=== PATIENT | female | born 1990 | race Caucasian/White ===

== ENCOUNTER 2016-10-10 11:46 | Day surgery (SDC) | payer OTHER ==
[~2016-10-10 11:46] MED LIST: RINGERS SOLUTION,LACTATED 1,000 ML IV PRN
--- OUTSIDE RECORDS SUMMARY | 2016-10-10 11:49 | XMS REPORT | Continuity of Care Document ---
:1990 Author Organization [facility] ([facility]) Address [address] [place] [address] Phone [phone] Care Team Providers Name Role Phone Everardo Khoury Primary Care Provider [phone] Source Comments This disclosure is being made pursuant to the Care Everywhere program, applicable federal and state laws, and may not contain all informaitonavailable regarding this patient.[facility] ([facility]) Active Allergies and Adverse Reactions No Known Allergies Current Medications Prescription Sig. Disp. Refills Start Date End Date Status Take 1 Tab by mouth Active [id number] PO daily. HYDROcodone-acetaminophe Take 1 Tab by mouth Active n (VICODIN) 5-500 mg per every 6 hours as tablet needed. nitrofurantoin Take 1 Cap by mouth 14 Cap 0 01/03/2011 Active (MACROBID) 100 mg 2 times daily. capsule Indications: E. Coli Urinary Tract Infection Active Problems Problem Noted Date Migraines - takes vicodin 01/03/2011 Tobacco use 08/05 ppd 01/03/2011 ASCUS on Pap smear, HPV neg 08/27/2010 01/03/2011 Elevated Dopplers 4.8-5.3 @ 25 weeks, normal at 27 weeks, to continue to 01/03 follow Q 4 wks, deliver locally UTI treated for + nitrites and 3+ protein on 01/03- needs ZACK 01/03/2011 Anemia 12/19/2010 Proteinuria, 4+ at initial OB visit, 2+ in 2008. 24 hr urine for protein 911 mg 12/26 Overview: Baseline labs: AST 9, ALT 13, Creat 0.5, Hgb 10.9, Plt 191 , , dating by LMP c/w 18 wk US 12/17/2010 Currently Estimated Date of Delivery Comments Yes Social History Tobacco Use Types Packs/Day Years Used Date Never Assessed 0.5 Smokeless Tobacco: Current User Comments:not interested in quiting Alcohol Use Drinks/Week oz/Week Comments No Last Filed Vital Signs Vital Sign Reading Time Taken Blood Pressure 120/70 01/17/2011 1:00 PM CDT Pulse 111 01/17/2011 1:00 PM CDT Temperature 35.9 C (96.6 F) 01/03/2011 1:00 PM CDT Respiratory Rate - - Height 1.57 m (5' 1.81") 12/20/2010 8:39 AM CDT Weight 104.2 kg (229 lb 11.5 oz) 01/17/2011 1:00 PM CDT Body Mass Index 42.27 01/17/2011 1:00 PM CDT Oxygen Saturation - - Plan of Care Health Maintenance Due Date Last Done Comments Hepatitis B Vaccine (1 of 3 - Primary Series) 1990 Tdap Vaccine 12/28/1999 Cervical Cancer Screening 2006 Lipid Disorder Screening 2006 MMR Vaccine 2006 Td Vaccine 2006 Influenza Vaccine: Seasonal (#1) 03/04/2016 Results from Last 3 Months Not on file
[2016-10-10 12:16] LABS: Hematocrit 41.4 % (37.0-47.0); Hemoglobin 13.9 gm/dL (12.5-16.0); Mean Cell Volume 93.9 fl (78-100); Mean Corpuscular Hemoglobin 31.5 pg (27-31); Mean Corpuscular Hgb Conc 33.6 g/dl (32-36); Mean Platelet Volume 10.2 fl (6.0-9.5); Neutrophil # 6.3 K/mm3 (1.3-6.0); Neutrophil % 64.2 % (42-75.0); Platelet Count 215 K/mm3 (150-450); Red Blood Count 4.41 M/mm3 (4.2-5.4); Red Cell Distribution Width 13.1 % (11.5-14.0); White Blood Count 9.8 K/mm3 (4.0-10.5)
[2016-10-10 12:30] LABS: Albumin * 3.4 gm/dl (3.4-5.0); Anion Gap 14.5 mmol/L (6.8-13.8); BUN/Creatinine Ratio 19.3 (9.0-21.6); Bilirubin, Total 0.3 mg/dL (0.0-1.1); Ca. Corrected For Albumin 9.2 mg/dL (8.4-10.2); Carbon Dioxide 24.6 mmol/L (24-32.6); Potassium 4.1 mmol/L (3.4-4.6); Total Protein 7.7 gm/dL (6.2-8.2)
[2016-10-10] MEDS ORDERED: RINGERS SOLUTION,LACTATED 1,000 ML IV ONE ×2 (12:33→13:30)
[2016-10-10] MEDS ORDERED: BUPIVACAINE HCL 50 ML VIAL IM ONE ×2 (13:20)
[2016-10-10] MEDS ORDERED: METHYLENE BLUE 1 ML AMPUL IJ ONE (13:50)
[2016-10-10] MEDS ORDERED: IBUPROFEN 800 MG TABLET PO ONE ×2 (15:17→17:00)
[2016-10-10] MEDS ORDERED: RINGERS SOLUTION,LACTATED 1,000 ML IV PRN (15:17)
[2016-10-10] MEDS ORDERED: HYDROcodone/ACETAMINOPHEN 1 EACH TABLET PO ONE ×2 (15:18→17:00)
[2016-10-10] MEDS ORDERED: IBUPROFEN 800 MG TABLET ONE (16:54)
--- NOTE | 2016-10-10 16:54 | OR ---
Operative Report - Dictated Report Narrative: Date of Procedure: 10/10/2016 PROCEDURE: 1. Hysteroscopy, D&C 2. Diagnostic laparoscopy with chromotubation 3. Right ovarian partial cystectomy. ANESTHESIA: General, endotracheal intubation. PREOPERATIVE DIAGNOSIS: 1. Secondary infertility 2. Abnormal ultrasound of the endometrium with multiple cystic lesions. 3. Right ovarian cyst, 3-4 cm on ultrasound POSTOPERATIVE DIAGNOSES: 1. Secondary infertility, unknown causes 2. Abnormal ultrasound of the endometrium with multiple cystic lesions. 3. Right ovarian cyst, about 3 cm SURGEON: Alia Birch MD [employer]: Jeanmarie Sanchez FINDINGS: 1. Cervix with a nabothian cyst 1.5 cm at 11 o'clock. Cervical canal appeared normal. 2. Uterus appeared normal in size with normal cavity and normal tubal ostia. 3. Bilateral fallopian tubes appeared normal with spillage of blue dye ( methylene blue), suggesting patent tubes. 4. Right ovary with simple cyst 3 cm and left ovary appeared normal. 5. There was some adhesions of the sigmoid colon to the left pelvic side wall. SPECIMEN: 1. Right ovarian cyst wall. 2. Endometrial curettings. DRAINS: None. URINE OUTPUT: not measured BLOOD LOSS: 10 ml INTRAOPARATIVE IV FLUIDS: 1200 ml COMPLICATIONS: None. DESCRIPTION OF PROCEDURE: The patient consented prior to the operation and taken to the operating room. She was placed on the operating table supine. SCDs were placed on her lower extremities. General anesthesia was induced. She was repositioned in the dorsal lithotomy position. Her right arm was tucked at her side under the drape. Exam under anesthesia revealed a normal size uterus with no palpable adnexal mass. The abdomen was prepped with Chloraprep and the vagina was prepped with Betadine. She was draped in the usual sterile fashion. A time-out procedure was conducted to confirm the correct patient for the correct procedure. After time-out, a bivalve speculum was placed into the vagina. The cervix was visualized. The vagina and the cervix were prepped with Betadine one more time. The anterior cervix was grasped with a single- tooth tenaculum. The uterus was sounded to 7.5 cm. The cervix was dilated with Andrey dilators. A 30 degree hysteroscope was inserted through cervical canal into the uterine cavity. Exam of the cervical canal and uterine cavity revealed findings noted above. The hysteroscope was removed. A Zumi uterine manipulator was inserted into the uterine cavity. The balloon was inflated with 3 cc of air. The single-tooth tenaculum was removed. The bivalve speculum was removed. The surgeon then changed gloves and attention was paid to the abdomen. A small vertical incision was made at the upper edge of the umbilicus. A Veress needle was inserted into the abdominal cavity. Initial Veress needle placement was extraperitoneum as the CO2 inflation pressure quickly went up to 15 mm Hg. The Veress needle was removed. The Veress needle was inserted again into the peritoneal cavity. Intraabdominal placement was confirmed with a saline drop test and with low entry pressure of 2 mmHg. The abdomen was insufflated with CO2 gas to an intraabdominal pressure of 15 mmHg. The Veress needle was removed. A 5 mm trocar with the laparoscope was inserted through the umbilicus incision into the abdomen. Intraabdominal placement was confirmed with the laparoscope. Survey of the entry site revealed no trauma to the underlying structures. However, there was some gas distention of the extraperitoneum from the initial unsuccessful Veress needle placement. This was evacuated with the Veress needle through the over laying skin. After evacuation of the extraperitoneal gas, survey of the upper abdomen was unremarkable. The patient was then placed in Trendelenburg position. A left lower quadrant trocar (12 mm) and a right lower quadrant trocar (5 mm) were placed to avoid the inferior epigastric vessels. A fourth trocar (5 mm) was placed suprapubically in the midline. All trocars were placed under the direct visualization of the laparoscope. Survey of the pelvis revealed the findings noted above. Next, attention was paid to the chromotubation of the fallopian tubes. One milliliter of Methylene blue (10 mg/ml) was diluted with 150 ml of normal saline and 20 ml of diluted methylene blue was injected through the Zumi uterine manipulator. Dye spillage was observed in both fallopian tubes, confirming that both fallopian tubes were patent. The dye was suctioned out. Next, attention was paid to the right ovarian cystectomy. A Kleppinger was used to make a linear cauterized line over the ovarian tissue covering the cyst. An endo-scissor was used to make an incision on the cauterized line. The ovarian capsure covering the cyst was dissected with the endo-scissor in both sharp and blunt fashions. The cyst ruptured during dissection, releasing clear fluid. Part of the cyst wall was removed and sent for pathology. Due to the benign nature of the cyst, It was decided not to continue with a full dissection of the cyst wall due to potential risk of bleeding. The pelvis was irrigated with saline. Extra fluid was suctioned out from the abdomen and pelvis. There was hemostasis of the right ovary. The patient was taken out of Trendelenburg position. Three lower abdominal trocars were removed. The abdomen was deflated. The trocar at the umbilicus was removed with the laparoscope. The fascia of the LLQ 12 mm trocar site was closed with one stitch of 0 Vicryl on an UR-6 needle. The subQ tissue was closed with interrupted suture of 3-0 Vicryl. The skin incision was closed with 4-0 Monocryl suture and covered with Steri-Strips. The incision was infiltrated with 3 cc of 0.25% Marcaine for post op pain management. Next, attention was paid to performing a D&C. The Zumi uterine manipulator was removed. A weighted speculum was placed. A Modale retractor was used to retract the anterior vaginal wall. The anterior cervix was grasped with a single-tooth tenaculum. A sharp curette was inserted into the uterine cavity. The cavity was scraped gently in all directions. Moderate amount of endometrial curettings were obtained. The sharp curette was removed. There was no bleeding from the cervix. The single-tooth tenaculum was removed. The tenaculum site was hemostastic. The Modale retractor and the weighted speculum were removed. Patient tolerated the procedure well. All counts were correct. The patient was taken to the recovery room in stable condition. Alia Birch MD
[2016-10-10] MEDS ORDERED: HYDROcodone/ACETAMINOPHEN 1 EACH TABLET ONE (16:55)
[2016-10-10 18:00] VITALS: BP 130/75
== END 2016-10-10 11:47 | disposition home or self-care (01) ==
LOC: AMB 11:46
PROVIDERS: ATTEND Obstetrics & Gynecology
PROC: 0UB04ZZ Excision of Right Ovary, Percutaneous Endoscopic Approach (ICD-10-PCS; 2016-10-10)
PROC: 3E1P88Z Irrigation of Female Reproductive using Irrigating Substance, Via Natural or Artificial Opening Endoscopic (ICD-10-PCS; principal; 2016-10-10 13:00)
PROC: 0UDB8ZX Extraction of Endometrium, Via Natural or Artificial Opening Endoscopic, Diagnostic (ICD-10-PCS; 2016-10-10 13:00)
DX: N83.201 Unspecified ovarian cyst, right side (principal); N97.9 Female infertility, unspecified; E11.21 Type 2 diabetes mellitus with diabetic nephropathy; E66.9 Obesity, unspecified; Z68.39 Body mass index [BMI] 39.0-39.9, adult; F17.200 Nicotine dependence, unspecified, uncomplicated

== ENCOUNTER 2018-12-10 23:45 | Inpatient (IN) ==
[2018-12-11] MEDS ORDERED: LIDOCAINE HCL 50 ML VIAL PERI PRN (00:52)
[2018-12-11] MEDS ORDERED: NALBUPHINE HCL 10 MG/ML AMPUL IV PRN ×2 (00:52)
[2018-12-11] MEDS ORDERED: OXYTOCIN/DEXTROSE 5%-WATER 30 UNITS/500 ML BAG IV ONE (00:52)
[2018-12-11] MEDS ORDERED: ONDANSETRON 4 MG TAB.RAPDIS PO PRN (00:52)
[2018-12-11] MEDS ORDERED: RINGER'S SOLUTION,LACTATED 1,000 ML IV ONE (00:52)
[2018-12-11] MEDS ORDERED: RINGER'S SOLUTION,LACTATED 1,000 ML IV PRN (00:52)
[2018-12-11 01:43] LABS: Hematocrit 32.9 % (37.0-47.0); Mean Cell Volume 95.9 fl (78-100); Mean Corpuscular Hemoglobin 32.1 pg (27-31); Mean Corpuscular Hgb Conc 33.4 g/dl (32-36); Mean Platelet Volume 10.1 fl (8-12.5); Neutrophil # 10.2 K/mm3 (1.3-6.0); Neutrophil % 76.9 % (42-75.0); Platelet Count 183 K/mm3 (150-450); Red Blood Count 3.43 M/mm3 (4.2-5.4); Red Cell Distribution Width 13.5 % (11.5-14.0); White Blood Count 13.2 K/mm3 (4.0-10.5)
[2018-12-11 01:57] LABS: Albumin * 2.2 gm/dl (3.4-5.0); Anion Gap 15.9 mmol/L (6.8-13.8); BUN/Creatinine Ratio 9.4 (9.0-21.6); Bilirubin, Total 0.2 mg/dL (0.0-1.1); Ca. Corrected For Albumin 9.8 mg/dL (8.4-10.2); Calcium * 8.7 mg/dL (7.9-10.9); Carbon Dioxide 21.1 mmol/L (24-32.6); Total Protein 6.1 gm/dL (6.2-8.2)
[2018-12-11 02:00] LABS: Cocaine Ur Negative (NEGATIVE); Urine Barbiturate Negative (NEGATIVE); Urine Benzodiazepines Negative (NEGATIVE); Urine Opiates Negative (NEGATIVE); Urine PCP Negative (NEGATIVE); Urine THC Negative (NEGATIVE)
[2018-12-11] MEDS ORDERED: NALOXONE HCL 1 MG/1 ML SYRG IV PRN (07:01)
[2018-12-11] MEDS ORDERED: BUPIVACAINE HCL/0.9 % NACL/PF 250 ML EP PRN (07:01)
[2018-12-11] MEDS ORDERED: ONDANSETRON HCL/PF 2 MG/ML VIAL IV PRN ×2 (07:01→12:48)
--- NOTE | 2018-12-11 07:08 | ANES ---
Anesthesia Pre Procedure Eval Vitals/Labs: Last Vital Signs Temp 36.7 C 12/11/18 00:30 Pulse 99 12/11/18 00:30 Resp 17 12/11/18 00:30 BP 142/91 H 12/11/18 00:30 Pulse Ox 97 12/11/18 00:30 HOME MEDICATIONS diphenhydramine 25 mg tablet 25 mg PO HS 11/04/18 [Last Taken 12/01/18] Vits96/Iron Fum/Folic [ S] 1 tab PO DAILY 12/09/18 [Last Taken Unknown] Allergies/Adverse Reactions: Allergies Allergy/AdvReac Type Severity Reaction Status Date / Time No Known Allergies Allergy Verified 12/11/18 00:54 - Planned Procedure Planned Procedure: labor Medication List Reviewed:: Yes Allergies Verified: Yes Medical History (Updated 09/08/18 @ 12:05 by Andres Dominique DO) Furuncle (Acute) posterior left labia. Culture done today by PCP 09/08/18. History of OCD (obsessive compulsive disorder) Tobacco abuse Fracture of medial malleolus Onset Date: ~04/14/14 left, hardware in place Type II diabetes mellitus Onset Date: ~06/14/14 resolved after weight loss surgery Surgical History (Updated 07/13/18 @ 09:12 by Annie Jon LPN) History of bilateral carpal tunnel release Onset Date: ~09/2017 History of gastric bypass Onset Date: ~10/2017 gastric sleeve History of hysteroscopy Onset Date: ~10/10/16 History of laparoscopy Onset Date: ~10/10/16 History of ovarian cystectomy Onset Date: ~2011 History of tonsillectomy and adenoidectomy Onset Date: ~2009 History of wisdom tooth extraction Onset Date: ~2011 Hx of cholecystectomy Onset Date: ~2007 Status post correction of deviated nasal septum Onset Date: ~2009 Family History (Updated 07/13/18 @ 09:15 by Annie Jon LPN) Mother Pancreatic cancer, Onset Age: 55 Father Lung cancer, Onset Age: 67 Hypertension Grandmother Brain cancer Grandfather CVA (cerebral vascular accident) - Family Anesthesia History Family History:: no untoward family reactions to anesthesia, no familial bleeding tendencies, no family history of clotting disorders, no family history of premature - Airway/Neck/Teeth Within Normal Limits:: Yes Teeth Condition: none Neck Exam: full range of motion Mallampatti Score: 2 Thyromental (T-M) distance: > 6 cm Mandibulo Hyoid distance: > 3 cm - Respiratory Respiratory Physical: rhonchi Smoking Status: Current every day smoker Discussed smoking cessation including day of surgery: Yes Sleep Apnea currently treated: No Sleep Apnea by current assessment: No - Cardiovascular Tolerate Activity: Fair Heart Sounds: S1 & S2, Regular - Anesthesia Assessment and Plan ASA Class: PS, II, E Anesthesia Type Plan: Epidural - CSE for labor analagesia
[2018-12-11] MEDS ORDERED: fentaNYL CITRATE/PF 50 MCG/ML AMPUL IT SCH (07:15)
[2018-12-11] MEDS ORDERED: LIDOCAINE HCL/EPINEPHRINE 20 ML VIAL ONE (07:17)
[2018-12-11] MEDS ORDERED: LIDOCAINE HCL/EPINEPHRINE 20 ML VIAL IJ ONE (07:23)
--- NOTE | 2018-12-11 07:32 | ANES ---
Post Anesthesia Discharge - Transfer of Care Transfer of Care handoff given to nurse: Yes - Discharge from PACU Discharge from PACU when meets criteria: Yes - Comfortable after CSE.
--- NOTE | 2018-12-11 07:33 | ANES ---
Anesthesia Procedure Note Procedure Note: ANESTHESIA PROCEDURE NOTE Date of Procedure: 12/11/2018 Time of procedure: 7:10 AM. Performed by: Jayme Glover CRNA, MSN [employer] Vehicle Patrol Officer: Tessa Nolan RN. Preprocedure diagnosis: Active labor, labor pain. Post procedure diagnosis: Same. Procedure:Epidural for labor analgesia L34. Indications: Labor pain. Findings: See below. Details of the procedure: The patient was placed on the side of the bed in sitting positionand prepped with DuraPrep then draped in a sterile fashion. Lidocaine 1% was infiltrated to the skin and subcutaneous tissues at the level of the L3 4 interspace. An 18-gauge Touhy needle was used to approach the epidural space with loss of resistance technique. Once loss of resistance was achieved a 27-gauge spinal needle was passed through the epidural needle and CSF was contacted. After CSF returned, 20 mcg of fentanyl was injected in the spinal needle was removed the epidural catheter was then threaded approximately 4 cm in the epidural needle was removed. The catheter was taped in place and after careful aspiration 3 mL of 1.5% lidocaine with 1-200,000 epinephrine was injected without change in maternal heart rate or sensorium. . EBL: Minimal. Fluids: N/A. Specimen: N/A. Post procedure condition: The patient tolerated the procedure well with good re lief. No complications were noted. Thank you for this consultation. Jayme Glover CRNA, MSN
--- NOTE | 2018-12-11 07:49 | ANES ---
Post Anesthesia Assessment - Vital Signs Vitals: Last Vital Signs Temp 36.7 C 12/11/18 00:30 Pulse 99 12/11/18 00:30 Resp 17 12/11/18 00:30 BP 142/91 H 12/11/18 00:30 Pulse Ox 97 12/11/18 00:30 Airway Patency: Normal - Mental Status Level Of Consciousness: Awake, Alert, Appropriate - Pain Level Pain Score: 0 - N/V Assessment Nausea/Vomiting Presence: None Dehydration:: No
--- NOTE | 2018-12-11 07:52 | HP ---
Chief Complaint - Chief Complaint Date of Service: 12/11/18 Time of Service: 07:48 Chief Complaint: Labor induction History of Present Illness: The patient presents for medical induction of labor due to pre-eclampsia. She denies STUART, visual changes or abdominal pain. She is having regular ctx on pitocin. She denies vb or lof. Fetus is active. Medical History (Updated 09/08/18 @ 12:05 by Andres Dominique DO) Furuncle (Acute) posterior left labia. Culture done today by PCP 09/08/18. History of OCD (obsessive compulsive disorder) Tobacco abuse Fracture of medial malleolus Onset Date: ~04/14/14 left, hardware in place Type II diabetes mellitus Onset Date: ~06/14/14 resolved after weight loss surgery Surgical History: Surgical History (Updated 07/13/18 @ 09:12 by Annie Jon LPN) History of bilateral carpal tunnel release Onset Date: ~09/2017 History of gastric bypass Onset Date: ~10/2017 gastric sleeve History of hysteroscopy Onset Date: ~10/10/16 History of laparoscopy Onset Date: ~10/10/16 History of ovarian cystectomy Onset Date: ~2011 History of tonsillectomy and adenoidectomy Onset Date: ~2009 History of wisdom tooth extraction Onset Date: ~2011 Hx of cholecystectomy Onset Date: ~2007 Status post correction of deviated nasal septum Onset Date: ~2009 Family History: Family History (Updated 07/13/18 @ 09:15 by Annie Jon LPN) Mother Pancreatic cancer, Onset Age: 55 Father Lung cancer, Onset Age: 67 Hypertension Grandmother Brain cancer Grandfather CVA (cerebral vascular accident) Social History: Preferred Language [place] Smoking Status Current every day smoker Smoking packs per day 0.5 Abuse History No History of abuse Psych History No pertinent hx (Last Updated 12/09/18 @ 14:46 by Rosalina Parish MD) No Social History Section defined Review Of Systems (GEN) - Review of Systems Generalized/Overall Review: Present: No Symptoms Reported Misc: All systems neg except as marked Immunizations: IMMUNIZATION HX Immunizations Up to Date Yes Allergies/Adverse Reactions: Allergies Allergy/AdvReac Type Severity Reaction Status Date / Time No Known Allergies Allergy Verified 12/11/18 00:54 Home Medications: HOME MEDICATIONS diphenhydramine 25 mg tablet 25 mg PO HS 11/04/18 [Last Taken 12/01/18] Vits96/Iron Fum/Folic [ S] 1 tab PO DAILY 12/09/18 [Last Taken Unknown] Exam - Exam Vital Signs: Vital Signs - Last Taken Temp 36.7 C 12/11/18 00:30 Pulse 99 12/11/18 00:30 Resp 17 12/11/18 00:30 BP 142/91 H 12/11/18 00:30 Pulse Ox 97 12/11/18 00:30 Constitutional: Present: Alert, Oriented x3, Cooperative Respiratory: Present: lungs clear, normal breath sounds Cardiovascular/Chest: Present: regular rate, rhythm, no murmur Abdomen: Present: soft, nontender, nondistended Extremity: Present: non-tender, no calf tenderness Skin Exam: Present: normal color, warm/dry, no cyanosis Appearance: Present: appropriate appearance Eye contact: Present: cooperative Thoughts: Present: normal thought pattern Diagnostic Studies: Abnormal Lab Results 12/11/18 12/11/18 Range/Units 01:30 01:30 WBC 13.2 H (4.0-10.5) K/mm3 RBC 3.43 L (4.2-5.4) M/mm3 Hgb 11.0 L (12.5-16.0) gm/dL Hct 32.9 L (37.0-47.0) % MCH 32.1 H (27-31) pg Immature Gran % (Auto) 0.60 H (0.001-0.429) % Immature Gran # (Auto) 0.08 H (0.000-0.0310) K/mm3 Neutrophils % 76.9 H (42-75.0) % Lymphocytes % 18.1 L (20-51) % Neutrophils # 10.2 H (1.3-6.0) K/mm3 Potassium 3.0 L (3.4-4.6) mmol/L Carbon Dioxide 21.1 L (24-32.6) mmol/L Anion Gap 15.9 H (6.8-13.8) mmol/L Random Glucose 120 H (70-110) mg/dL ALT 10 L (19-67) U/L Total Protein 6.1 L (6.2-8.2) gm/dL Albumin 2.2 L (3.4-5.0) gm/dl Laboratory Results WBC 13.2 K/mm3 (4.0-10.5) H 12/11/18 01:30 RBC 3.43 M/mm3 (4.2-5.4) L 12/11/18 01:30 Hgb 11.0 gm/dL (12.5-16.0) L 12/11/18 01:30 Hct 32.9 % (37.0-47.0) L 12/11/18 01:30 MCV 95.9 fl (78-100) 12/11/18 01:30 MCH 32.1 pg (27-31) H 12/11/18 01:30 MCHC 33.4 g/dl (32-36) 12/11/18 01:30 RDW 13.5 % (11.5-14.0) 12/11/18 01:30 Plt Count 183 K/mm3 (150-450) 12/11/18 01:30 MPV 10.1 fl (8-12.5) 12/11/18 01:30 Immature Gran % (Auto) 0.60 % (0.001-0.429) H 12/11/18 01:30 Immature Gran # (Auto) 0.08 K/mm3 (0.000-0.0310) H 12/11/18 01:30 76.9 % (42-75.0) H 12/11/18 01:30 18.1 % (20-51) L 12/11/18 01:30 3.4 % (0.0-9) 12/11/18 01:30 0.7 % (0.0-3.0) 12/11/18 01:30 0.3 % (0.0-1.0) 12/11/18 01:30 Nucleated RBC % 0.0 k/mm3 (0-1) 12/11/18 01:30 10.2 K/mm3 (1.3-6.0) H 12/11/18 01:30 2.40 k/mm3 (1.5-3.5) 12/11/18 01:30 0.5 k/mm3 (0.0-1.0) 12/11/18 01:30 0.1 k/mm3 (0.0-0.7) 12/11/18 01:30 Absolute Basophils 0.0 k/mm3 (0.0-0.1) 12/11/18 01:30 Sodium 139 mmol/L (132-142) 12/11/18 01:30 139 mmol/L (130-142) 12/11/18 01:30 Potassium 3.0 mmol/L (3.4-4.6) L 12/11/18 01:30 Chloride 105 mmol/L (97-106) 12/11/18 01:30 Carbon Dioxide 21.1 mmol/L (24-32.6) L 12/11/18 01:30 15.9 mmol/L (6.8-13.8) H 12/11/18 01:30 BUN 6 mg/dL (3-23) 12/11/18 01:30 0.64 mg/dL (0.4-1.4) 12/11/18 01:30 Est GFR (Non-Af Amer) 117 mL/min (60-130) D 12/11/18 01:30 9.4 (9.0-21.6) 12/11/18 01:30 120 mg/dL (70-110) H 12/11/18 01:30 Calcium 8.7 mg/dL (7.9-10.9) 12/11/18 01:30 Calcium Adj for Albumin 9.8 mg/dL (8.4-10.2) 12/11/18 01:30 0.2 mg/dL (0.0-1.1) 12/11/18 01:30 AST 12 U/L (0-48) 12/11/18 01:30 ALT 10 U/L (19-67) L 12/11/18 01:30 133 U/L (50-170) 12/11/18 01:30 6.1 gm/dL (6.2-8.2) L 12/11/18 01:30 2.2 gm/dl (3.4-5.0) L 12/11/18 01:30 Negative (NEGATIVE) 12/11/18 01:30 Negative (NEGATIVE) 12/11/18 01:30 Ur Phencyclidine Scrn Negative (NEGATIVE) 12/11/18 01:30 Urine Amphetamine Negative (NEGATIVE) 12/11/18 01:30 U Benzodiazepines Scrn Negative (NEGATIVE) 12/11/18 01:30 Negative (NEGATIVE) 12/11/18 01:30 Negative (NEGATIVE) 12/11/18 01:30 Blood Type A Positive 12/11/18 01:30 Antibody Screen Negative 12/11/18 01:30 Assessment/Plan - Narrative Narrative: 27 year old @ 37w 0 day Medical IOL for pre-eclampsia without severe features. On pitocin. cvx is 4/50/- 3 s/p AROM for bloody fluid. Internal monitors placed due to difficulty monitoring the patient. The patient is comfortable with her epidural in place. GBS is negative so prophylaxis is not indicated
[2018-12-11] MEDS ORDERED: OXYTOCIN 20 UNITS in RINGER'S SOLUTION,LACTATED 1,000 ML IV ONE (11:57)
[2018-12-11] MEDS ORDERED: ceFAZolin SODIUM/DEXTROSE,ISO 2 GM/50 ML BAG IV PRN (11:57)
--- NOTE | 2018-12-11 12:01 | PN ---
Progess Note - Interim Date: 12/11/18 Time: 12:00 Narrative: 12/11/18 12:00 Pitocin turned off due to deep variable decelerations. Cervix unchanged at 5-6 cm Proceed with emergent delivery The patient desires tubal ligation. Proceed with bilateral salpingectomies
[2018-12-11] MEDS ORDERED: SIMETHICONE 80 MG TAB.CHEW PO PRN (12:48)
[2018-12-11] MEDS ORDERED: HYDROcodone/ACETAMINOPHEN 1 EACH TABLET PO PRN (12:48)
[2018-12-11] MEDS ORDERED: diphenhydrAMINE HCL 25 MG CAPSULE PO PRN (12:48)
[2018-12-11] MEDS ORDERED: BISACODYL 10 MG SUPP.RECT RC PRN (12:48)
[2018-12-11] MEDS ORDERED: SENNOSIDES 8.6 MG TABLET PO PRN (12:48)
--- NOTE | 2018-12-11 13:07 | OR ---
Operative Report - Dictated Report Narrative: Date of delivery: 12/11/2018 Time of delivery: 1221 Gender: male APGARS: 8/9 weight: 2190 grams Preoperative diagnosis: IUP @ 37w 0d, pre-eclampsia without severe features, nonreassuring FHT Postoperative diagnosis: same in addition to loose nuchal cord Procedure: primary delivery, bilateral salpingectomies Description of the procedure: The patient was taken to the operating room for an urgent delivery due to recurrent deep variable decelerations with periods of minimal variability while pitocin was off and also the patient was remote from delivery at 5cm. The patient's epidural was redosed and anesthesia was found to be adequate. The patient was prepped and draped in the lithotomy position in the standard surgical fashion. A Pfannestiel skin incision was made. The incision was carried through the subcutaneous tissue. The fascia was incised in the midline. The fascial incision was extended sharply. The fascia was dissected off the underlying rectus muscles. The peritoneum was entered bluntly. A large Ervin retractor was placed. The uterus was incised in the lower uterine segment. The placenta was anterior and noted to be superior to the uterine incision. The head was delivered without difficulty followed by the rest of the body. A loose nuchal cord was noted which reduced on its own. The was handed off to the attending pediatric staff. Cord blood was collected. The placenta was delivered by expression. The uterus was cleared of all clots and debris. The uterine incision was closed with 0-vicryl in a running locking suture. The uterine incision was found to be hemostatic. The Ervin retractor was removed from the abdomen. The bilateral ovaries and fallopian tubes were examined and appeared normal. The left fallopian tube was identified and followed to the fimbriated end. The left fallopian tube was removed by following cutting along the mesosalpinx using the handheld Ligasure device. The same procedure was repeated on the right. The rectus muscles were inspected as as the fascia to ensure hemostasis. The uterine incision was again reinspected and appeared hemostatic. Attention was then turned to the fascia. The fascia was closed with 1-0 vicryl. The subcutaneous tissue was irrigated and hemostasis was obtained. The subcutaneous tissue space was closed with 2-0 vicryl. The skin was closed with 3-0 vicryl on a Tommy needle. Dermabond was placed over the incision. All sponge, lap, and needle counts were correct. The patient tolerated the procedure well. She was transferred to the recovery room in stable condition. EBL: 700 mL Complications: none Specimens: placenta, fallopian tubes
--- NOTE | 2018-12-11 13:56 | ANES ---
Anesthesia Pre Procedure Eval Vitals/Labs: Last Vital Signs Temp 36.1 C 12/11/18 13:40 Pulse 86 12/11/18 13:40 Resp 20 12/11/18 13:40 BP 115/59 12/11/18 13:40 Pulse Ox 96 12/11/18 13:40 HOME MEDICATIONS Vits96/Iron Fum/Folic [ S] 1 tab PO DAILY 12/09/18 [Last Taken Unknown] HYDROcodone/ACETAMINOPHEN [Bison 5-325] 1 ea PO Q3H PRN 3 Days #20 tab 12/11/18 [Last Taken Unknown] Allergies/Adverse Reactions: Allergies Allergy/AdvReac Type Severity Reaction Status Date / Time No Known Allergies Allergy Verified 12/11/18 00:54 - Planned Procedure Planned Procedure: Medication List Reviewed:: Yes Allergies Verified: Yes Medical History (Updated 12/11/18 @ 07:52 by Rosalina Parish MD) Furuncle (Acute) posterior left labia. Culture done today by PCP 09/08/18. History of OCD (obsessive compulsive disorder) Tobacco abuse Fracture of medial malleolus Onset Date: ~04/14/14 left, hardware in place Type II diabetes mellitus Onset Date: ~06/14/14 resolved after weight loss surgery Surgical History (Updated 12/11/18 @ 07:52 by Rosalina Parish MD) History of bilateral carpal tunnel release Onset Date: ~09/2017 History of gastric bypass Onset Date: ~10/2017 gastric sleeve History of hysteroscopy Onset Date: ~10/10/16 History of laparoscopy Onset Date: ~10/10/16 History of ovarian cystectomy Onset Date: ~2011 History of tonsillectomy and adenoidectomy Onset Date: ~2009 History of wisdom tooth extraction Onset Date: ~2011 Hx of cholecystectomy Onset Date: ~2007 Status post correction of deviated nasal septum Onset Date: ~2009 Family History (Updated 07/13/18 @ 09:15 by Annie Jon LPN) Mother Pancreatic cancer, Onset Age: 55 Father Lung cancer, Onset Age: 67 Hypertension Grandmother Brain cancer Grandfather CVA (cerebral vascular accident) - Family Anesthesia History Family History:: no untoward family reactions to anesthesia - Airway/Neck/Teeth Within Normal Limits:: Yes Teeth Condition: intact, none Neck Exam: full range of motion Mallampatti Score: 1 Thyromental (T-M) distance: > 6 cm Mandibulo Hyoid distance: > 3 cm - Respiratory Smoking Status: Current every day smoker Discussed smoking cessation including day of surgery: Yes Sleep Apnea currently treated: No Sleep Apnea by current assessment: No - Cardiovascular Tolerate Activity: Good Heart Sounds: S1 & S2, Regular - Anesthesia Assessment and Plan ASA Class: PS, II, E Anesthesia Type Plan: Epidural - Tap block for postop analgesia
--- NOTE | 2018-12-11 13:56 | ANES ---
Post Anesthesia Discharge - Transfer of Care Transfer of Care handoff given to nurse: Yes - Discharge from PACU Discharge from PACU when meets criteria: Yes
--- NOTE | 2018-12-11 13:56 | ANES ---
Post Anesthesia Assessment - Vital Signs Vitals: Last Vital Signs Temp 36.1 C 12/11/18 13:40 Pulse 86 12/11/18 13:40 Resp 20 12/11/18 13:40 BP 115/59 12/11/18 13:40 Pulse Ox 96 12/11/18 13:40 Airway Patency: Normal - Mental Status Level Of Consciousness: Awake - Pain Level Pain Score: 0 - N/V Assessment Nausea/Vomiting Presence: None Dehydration:: No
--- NOTE | 2018-12-11 14:01 | ANES ---
Anesthesia Procedure Note Procedure Note: ANESTHESIA PROCEDURE NOTE Date of procedure: 12/11/2018. Time of procedure: 1305. Performed by: Jairo Dawkins CRNA Food Production Manager: Angelica Jacobo RN . Preprocedure diagnosis: for variable decelerations. Desire for postoperative analgesia. Post procedure diagnosis: Same. Procedure: Ultrasound-guided bilateral tap block Indications: Postoperative analgesia. Findings: Patient brought to the PACU and placed in a supine position. Patient's right lateral abdominal wall prepped with ChloraPrep. Ultrasound was utilized to identify the fascial layer between the internal oblique and trans- abdominus muscles. A 20-gauge 4 inch regional block needle was advanced under ultrasound guidance until tip of needle was positioned and just posterior to fascial layer. 20 mL of 0.25% Marcaine with epinephrine 1-200,000 was injected with adequate spread of local anesthesia noted. Procedure was then repeated on patient's left side. EBL: Minimal. Fluids: N/A. Specimen: N/A. Post procedure condition: The patient tolerated the procedure well. No complications were noted. Thank you for this consultation Jairo Dawkins CRNA
[2018-12-11] MEDS: KETOROLAC TROMETHAMINE 30 MG/ML VIAL IV PRN ×2 (15:49→21:42)
[2018-12-11] MEDS: HYDROcodone/ACETAMINOPHEN 1 EACH TABLET PO PRN ×2 (15:50→21:42)
[2018-12-11] MEDS: DOCUSATE SODIUM 100 MG CAPSULE PO SCH (21:42)
[2018-12-12] MEDS: KETOROLAC TROMETHAMINE 30 MG/ML VIAL IV PRN (05:27)
[2018-12-12] MEDS: DOCUSATE SODIUM 100 MG CAPSULE PO SCH ×2 (09:29→20:52)
[2018-12-12] MEDS: HYDROcodone/ACETAMINOPHEN 1 EACH TABLET PO PRN ×5 (09:29→23:48)
--- NOTE | 2018-12-12 11:28 | PN ---
Subjective - Date and Time Seen Date: 12/12/18 Time: 11:28 Objective - Vitals Vitals: Last Vital Signs Temp 35.8 C L 12/12/18 08:00 Pulse 82 12/12/18 08:00 Resp 18 12/12/18 08:00 BP 126/82 12/12/18 08:00 Pulse Ox 100 12/12/18 08:00 Patient denies complaints. Tolerating regular diet. Ambulating without difficulty. Pain well controlled. Lochia wnl. Abdomen - soft, appropriately tender Incision - clean, dry, intact Uterus - firm, at umbilicus -1 No calf tenderness Impression: Post op day #1 s/p emergent primary section. Preeclampsia-resolved Plan: Continue routine post-operative/ care Cauti Physician Documentation - Urinary Catheter Management Urethral (Manzano) Date of Insertion: 12/11/18 Time of Insertion: 08:30 Date of Removal: 12/12/18 Time of Removal: 00:48
[2018-12-12] MEDS ORDERED: BETHANECHOL CHLORIDE 25 MG TABLET PO ONE (12:48)
[2018-12-12] MEDS: IBUPROFEN 800 MG TABLET PO PRN (17:46)
[2018-12-13] MEDS: IBUPROFEN 800 MG TABLET PO PRN ×2 (04:03→14:09)
[2018-12-13] MEDS: HYDROcodone/ACETAMINOPHEN 1 EACH TABLET PO PRN ×2 (04:03→07:17)
--- NOTE | 2018-12-13 09:05 | PN ---
Subjective - Date and Time Seen Date: 12/13/18 Time: 09:04 Objective - Vitals Vitals: Last Vital Signs Temp 36.1 C 12/13/18 07:15 Pulse 81 12/13/18 07:15 Resp 18 12/13/18 07:15 BP 126/91 H 12/13/18 07:15 Pulse Ox 100 12/13/18 07:15 Patient denies complaints. Ambulating well. Tolerating regular diet. Pain well controlled. Patient desires early discharge Lochia wnl. Abdomen - soft, appropriately tender Incision - clean, dry, intact Uterus - firm, at umbilicus -2 No calf tenderness Impression: Post op day #2 s/p repeat section. Plan: Continue routine post-operative/ care. Routine discharge instructions given. Cauti Physician Documentation - Urinary Catheter Management Urethral (Manzano) Date of Insertion: 12/11/18 Time of Insertion: 08:30 Date of Removal: 12/12/18 Time of Removal: 00:48
[2018-12-13] MEDS: DOCUSATE SODIUM 100 MG CAPSULE PO SCH (09:59)
[2018-12-13 13:43] VITALS: BP 139/87
== END 2018-12-13 15:15 | disposition home or self-care (01) | DRG 785 ==
LOC: OB 23:45
PROVIDERS: ADMIT Obstetrics & Gynecology; ATTEND Obstetrics & Gynecology
CPT/HCPCS: 36415; 59025; 80053; 80307; 85025; 86850; 88302; 88307